=== PATIENT | male | born 1980 | race Caucasian/White ===

== ENCOUNTER 2021-05-02 12:49 | Inpatient (IN) | payer MEDICAID, SELFPAY ==
[2021-05-02 12:30] VITALS: BMI 22.8
[2021-05-02 13:11] VITALS: BP 137/97; PULSE 109; RESP 16; TEMP 36.3; O2SAT 97
[2021-05-02 14:00] VITALS: BP 137/97; PULSE 109; RESP 16; TEMP 36.3; O2SAT 97
[2021-05-02] MEDS: OLANZapine 5 mg ODT PO ×2 (16:09→17:57)
[2021-05-02] MEDS: hyDROXYzine 25 mg Capsule 50 MG PO (17:06)
[2021-05-02] MEDS: quetiapine 100 mg Tablet 400 MG PO (19:47)
[2021-05-02 20:10] VITALS: BP 135/91; PULSE 79; RESP 17; TEMP 36.5; O2SAT 98
[2021-05-03 06:00] VITALS: BP 141/98; PULSE 75; RESP 18; TEMP 36.6; O2SAT 100
[2021-05-03] MEDS: metoprolol succinate ER (24 HR) 50 mg Tablet PO (07:06)
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
[2021-05-03] MEDS: OLANZapine 5 mg ODT PO ×2 (11:58→17:59)
[2021-05-03] MEDS: hyDROXYzine 25 mg Capsule 50 MG PO (11:58)
--- NOTE | 2021-05-03 11:58 | PC.NURSE ---
1158: Patient complains of anxiety, Hydroxyzine 50mg & Zyprexa 5mg given. Will monitor for effectiveness. 1229: Patient continues to complain of anxiety & restlessness, Cogentin 1mg given. Will monitor for effectiveness. 1320: Patient pacing
[2021-05-03] MEDS: benztropine 1 mg Tablet PO (12:29)
[2021-05-03] MEDS: propranolol 20 mg Tablet PO (13:20)
[2021-05-03] MEDS: nicotine 21 mg Patch 1 PATCH TRANSDERMA (13:54)
[2021-05-03 14:00] VITALS: BP 127/87; PULSE 83; RESP 16; TEMP 36.6; O2SAT 97
[2021-05-03] MEDS: chlorPROMazine 50 mg Tablet PO (15:30)
[2021-05-03] MEDS: quetiapine 100 mg Tablet 400 MG PO (19:20)
[2021-05-03 19:28] VITALS: BP 116/81; PULSE 82; RESP 15; TEMP 36.8; O2SAT 97
[2021-05-04] MEDS: hyDROXYzine 25 mg Capsule 50 MG PO (03:12)
[2021-05-04 06:00] VITALS: BP 127/84; PULSE 72; RESP 15; TEMP 36.6; O2SAT 100
[2021-05-04] MEDS: metoprolol succinate ER (24 HR) 50 mg Tablet PO (09:18)
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
[2021-05-04 11:42] VITALS: BP 127/84; PULSE 72; RESP 15; TEMP 36.6; O2SAT 100
== END 2021-05-04 11:40 | disposition home or self-care (01) | DRG 885 ==
PROVIDERS: Admitting Provider Psychiatry & Neurology Psychiatry; Visit Provider Psychiatry & Neurology Psychiatry
DX: F23 Brief psychotic disorder (principal); R45.851 Suicidal ideations; F17.210 Nicotine dependence, cigarettes, uncomplicated; Z59.00 Homelessness unspecified; Z81.8 Family history of other mental and behavioral disorders; Z76.5 Malingerer [conscious simulation]; F41.9 Anxiety disorder, unspecified
CPT/HCPCS: 97165; Q0161